=== PATIENT | female | born 1965 | race Caucasian/White ===

== ENCOUNTER 2017-05-30 20:25 | Emergency (ER) | payer OTHER ==
[2017-05-30 20:33] VITALS: RESP 16; TEMP 98.6; O2SAT 95
[2017-05-30] MEDS ORDERED: ONDANSETRON 4 MG/2 ML VIAL ONE (20:45)
[2017-05-30] MEDS ORDERED: ONDANSETRON 4 MG/2 ML VIAL IVP ONE (20:49)
[2017-05-30] MEDS ORDERED: NS 1,000 ML IV ONE (20:49)
[2017-05-30] MEDS ORDERED: FAMOTIDINE 20 MG TAB PO ONE (20:50)
[2017-05-30] MEDS ORDERED: MAG HYDROX/AL HYDROX/SIMETH 30 ML UDCUP PO ONE (20:50)
[2017-05-30] MEDS ORDERED: HYOSCYAMINE SULFATE 0.125 MG TAB PO ONE (20:50)
[2017-05-30] MEDS ORDERED: LIDOCAINE 2% VISCOUS 15 ML UDCUP PO ONE (20:50)
[2017-05-30] MEDS ORDERED: FAMOTIDINE 20 MG/2 ML SDV ONE (20:59)
--- NOTE | 2017-05-30 21:00 | CPEKG ---
Heart Rate: 79 RR Interval: 759 P-R Interval: 176 QRSD Interval: 84 QT Interval: 388 QTC Interval: 445 P [place]: 55 QRS [place]: 48 T Wave [place]: 39 EKG Severity - NORMAL ECG - EKG Impression: SINUS RHYTHM Electronically Signed By: Luciano Sanchez 30-May-2017 21:09:23
--- NOTE | 2017-05-30 21:00 | EDPHY ---
H & P Stated Complaint: Epigastric pain > 24 hours, nausea, and back pain, RUQ pain. Time Seen by Provider: 05/30/17 20:43 HPI/ROS: CHIEF COMPLAINT: Epigastric pain HISTORY OF PRESENT ILLNESS: The patient is a 51-year-old female who comes to the emergency department complaining of epigastric pain that is consistent with her previous episodes of peptic ulcer disease. She states however that today is different because it is radiating to her back. This is never happened before. She does not have any history of abdominal surgeries. No cardiac history. She denies shortness of breath. She denies chest pain. No lightheadedness. She has been slightly nauseous but has not vomited. REVIEW OF SYSTEMS: Constitutional: denies: chills, fever, recent illness, recent injury EENTM: denies: blurred vision, double vision, nose congestion Respiratory: denies: cough, shortness of breath Cardiac: denies: chest pain, irregular heart rate, lightheadedness, palpitations Gastrointestinal/Abdominal: See HPI Genitourinary: denies: dysuria, frequency, hematuria, pain Musculoskeletal: denies: joint pain, muscle pain Skin: denies: lesions, rash, jaundice, bruising Neurological: denies: headache, numbness, paresthesia, tingling, dizziness, weakness Hematologic/Lymphatic: denies: blood clots, easy bleeding, easy bruising Immunologic/allergic: denies: HIV/AIDS, transplant EXAM: GENERAL: Well-appearing, well-nourished and in no acute distress. HEAD: Atraumatic, normocephalic. EYES: Pupils equal round and reactive to light, extraocular movements intact, sclera anicteric, conjunctiva are normal. ENT: TMs normal, nares patent, oropharynx clear without exudates. Moist mucous membranes. NECK: Normal range of motion, supple without lymphadenopathy or JVD. LUNGS: Breath sounds clear to auscultation bilaterally and equal. No wheezes rales or rhonchi. HEART: Regular rate and rhythm without murmurs, rubs or gallops. ABDOMEN: Soft, nontender, normoactive bowel sounds. No guarding, no rebound. No masses appreciated. BACK: No CVA tenderness, no spinal tenderness, step-offs or deformities EXTREMITIES: Normal range of motion, no pitting or edema. No clubbing or cyanosis. NEUROLOGICAL: Cranial nerves II through XII grossly intact. Normal speech, normal gait. 5/5 strength, normal movement in all extremities, normal sensation PSYCH: Normal mood, normal affect. SKIN: Warm, dry, normal turgor, no visible rashes or lesions. Source: Patient Exam Limitations: No limitations - Personal History LMP (Females 10-55): Hysterectomy Current Tetanus/Diphtheria Vaccine: Unsure Current Tetanus Diphtheria and Acellular Pertussis (TDAP): Unsure - Medical/Surgical History Hx Asthma: No Hx Chronic Respiratory Disease: No Hx Diabetes: No Hx Cardiac Disease: No Hx Renal Disease: No Hx Cirrhosis: No Hx Alcoholism: No Hx HIV/AIDS: No Hx Splenectomy or Spleen Trauma: No Other PMH: Hysterectomy, fibroadenoma L Breast, Bilateral bunion surgery, acid reflux, anxiety. - Family History Significant Family History: No pertinent family hx - Social History Smoking Status: Never smoked Alcohol Use: Sober Drug Use: None Constitutional: Initial Vital Signs Temperature (C) 37.0 C 05/30/17 20:29 Heart Rate 100 05/30/17 20:29 Respiratory Rate 16 05/30/17 20:29 Blood Pressure 143/99 H 05/30/17 20:29 O2 Sat (%) 95 05/30/17 20:29 O2 Delivery Mode Room Air Allergies/Adverse Reactions: codeine [Codeine] Allergy (Intermediate, Verified 05/30/17 20:33) Vomiting acetaminophen [Acetaminophen] Allergy (Mild, Verified 05/30/17 20:33) Abdominal Cramping Home Medications: Medication Instructions Recorded ALPRAZolam [Xanax (RX)] 0.5 mg PO DAILY PRN 12/09/11 Clarithromycin [Biaxin (*)] 500 mg PO BID #30 tab 05/30/17 Famotidine [Pepcid 20 MG (OTC)] 20 mg PO BID #30 tab 05/30/17 Metronidazole 500 mg PO BID #30 tablet 05/30/17 Medical Decision Making - Diagnostics EKG Interpretation: An EKG obtained and was read and documented in trace view. Please see trace view for full reading and report. Sinus rhythm, no acute ischemic changes Imaging Results: Imaging Impressions Chest X-Ray 05/30/17 20:50 Impression: Negative for acute abnormality. ED Course/Re-evaluation: 10:10 p.m. the patient feels somewhat better after GI cocktail. The pain in her back is better but she still has epigastric pain. Lab work is otherwise reassuring. I attempted to ultrasound her gallbladder at the bedside was was unable to visualize it. It visualize a slight lucency in her inferior aorta. It is proximal to the air she is having pain. We decided to proceed with CT scan of her aorta and abdomen. 11:06 p.m. the patient feeling much better. We discussed the results of her CT scan she is very much reassured. Her abdominal exam is currently benign. I will place her on triple therapy for peptic ulcer disease number follow up with GI. She is happy with this plan and declines further workup or testing at this time. Differential Diagnosis: Partial list of the Differential diagnosis considered include but were not limited to; peptic ulcer disease, biliary disease, P E, dissection and although unlikely based on the history and physical exam, I also considered pneumonia, pneumothorax, pancreatitis, urinary tract infection. I discussed these differential diagnoses and the plan with the patient as well as the usual and expected course. The patient understands that the diagnosis is provisional and that in medicine we are not always correct and that further workup is often warranted. Usual and customary warnings were given. All of the patient's questions were answered. The patient was instructed to return to the emergency department should the symptoms at all worsen or return, otherwise to followup with the physician as we discussed. - Data Points Laboratory Results: Laboratory Results 05/30/17 20:50 05/30/17 20:50 05/30/17 05/30/17 05/30/17 20:50 20:50 20:50 WBC 8.52 10^3/uL 10^3/uL (3.80-9.50) RBC 4.63 10^6/uL 10^6/uL (4.18-5.33) Hgb 14.7 g/dL g/dL (12.6-16.3) Hct 41.6 % % (38.0-47.0) MCV 89.8 fL fL (81.5-99.8) MCH 31.7 pg pg (27.9-34.1) MCHC 35.3 g/dL g/dL (32.4-36.7) RDW 12.0 % % (11.5-15.2) Plt Count 310 10^3/uL 10^3/uL (150-400) MPV 10.1 fL fL (8.7-11.7) Neut % (Auto) 78.3 % H % (39.3-74.2) Lymph % (Auto) 14.8 % L % (15.0-45.0) [place] % (Auto) 5.6 % % (4.5-13.0) Eos % (Auto) 0.4 % L % (0.6-7.6) Baso % (Auto) 0.7 % % (0.3-1.7) Nucleat RBC Rel Count 0.0 % % (0.0-0.2) Absolute Neuts (auto) 6.67 10^3/uL H 10^3/uL (1.70-6.50) Absolute Lymphs (auto) 1.26 10^3/uL 10^3/uL (1.00-3.00) Absolute Monos (auto) 0.48 10^3/uL 10^3/uL (0.30-0.80) Absolute Eos (auto) 0.03 10^3/uL 10^3/uL (0.03-0.40) Absolute Basos (auto) 0.06 10^3/uL 10^3/uL (0.02-0.10) Absolute Nucleated RBC 0.00 10^3/uL 10^3/uL (0-0.01) Immature Gran % 0.2 % % (0.0-1.1) Immature Gran # 0.02 10^3/uL 10^3/uL (0.00-0.10) D-Dimer 0.29 ug/mLFEU ug/mLFEU (0.00-0.50) Sodium 137 mEq/L mEq/L (134-144) Potassium 3.8 mEq/L mEq/L (3.5-5.2) Chloride 99 mEq/L mEq/L (97-110) Carbon Dioxide 21 mEq/l L mEq/l (22-31) Anion Gap 17 mEq/L H mEq/L (8-16) BUN 10 mg/dL mg/dL (7-23) Creatinine 0.7 mg/dL mg/dL (0.6-1.0) Estimated GFR > 60 Glucose 119 mg/dL H mg/dL (70-100) Calcium 10.3 mg/dL mg/dL (8.5-10.4) Total Bilirubin 0.8 mg/dL mg/dL (0.1-1.4) Conjugated Bilirubin 0.2 mg/dL mg/dL (0.0-0.5) Unconjugated Bilirubin 0.6 mg/dL mg/dL (0.0-1.1) AST 20 IU/L IU/L (14-46) ALT 23 IU/L IU/L (9-52) Alkaline Phosphatase 79 IU/L IU/L (38-126) Troponin I < 0.012 ng/mL ng/mL (0.000-0.034) Total Protein 8.1 g/dL g/dL (6.3-8.2) Albumin 5.0 g/dL g/dL (3.5-5.0) Lipase 263 IU/L IU/L (23-300) Medications Given: Discontinued Medications Al Hydroxide/Mg Hydroxide (Maalox Susp) 30 ml PO ONCE ONE Stop: 05/30/17 20:51 Last Admin: 05/30/17 21:04 Dose: 30 ml Famotidine (Pepcid) 20 mg PO EDNOW ONE Stop: 05/30/17 20:51 Last Admin: 05/30/17 21:09 Dose: Not Given Famotidine (Pepcid) 20 mg IVP EDNOW ONE Stop: 05/30/17 21:09 Last Admin: 05/30/17 21:08 Dose: 20 mg Hyoscyamine Sulfate (Levsin, Hyomax-Sl) 0.25 mg PO ONCE ONE Stop: 05/30/17 20:51 Last Admin: 05/30/17 21:04 Dose: 0.25 mg Sodium Chloride (Ns) 1,000 mls @ 0 mls/hr IV EDNOW ONE; Wide Open PRN Reason: Protocol Stop: 05/30/17 20:50 Last Admin: 05/30/17 21:06 Dose: 1,000 mls Lidocaine (Lidocaine 2% Viscous) 15 ml PO ONCE ONE Stop: 05/30/17 20:51 Last Admin: 05/30/17 21:04 Dose: 15 ml Ondansetron HCl (Zofran) 4 mg IVP EDNOW ONE Stop: 05/30/17 20:50 Last Admin: 09/23/17 22:35 Dose: Not Given Departure - Departure Disposition: Home, Routine, Self-Care Clinical Impression: Epigastric abdominal pain Condition: Fair Instructions: Epigastric Pain (ED) Referrals: DR DAMIAN [Other] - As per Instructions Prescriptions: Clarithromycin [Biaxin (*)] 500 mg PO BID #30 tab Famotidine [Pepcid 20 MG (OTC)] 20 mg PO BID #30 tab Metronidazole 500 mg PO BID #30 tablet
[2017-05-30] MEDS ORDERED: FAMOTIDINE 20 MG/2 ML SDV IVP ONE (21:08)
[2017-05-30 21:12] LABS: % IMMATURE GRANULYOCYTES 0.2 % (0.0-1.1); ABSOLUTE IMMATURE GRANULOCYTES 0.02 10^3/uL (0.00-0.10); ADD DIFF? NO; ADD MORPH? NO; ADD SCAN? NO; ATYPICAL LYMPHOCYTE FLAG 0 (0-99); FRAGMENT RBC FLAG 0 (0-99); HEMATOCRIT 41.6 % (38.0-47.0); HEMOGLOBIN 14.7 g/dL (12.6-16.3); LEFT SHIFT FLG 0 (0-99); LIPEMIA HEMOLYSIS FLAG 90 (0-99); MEAN CELL HEMOGLOBIN 31.7 pg (27.9-34.1); MEAN CELL HEMOGLOBIN CONCENTR. 35.3 g/dL (32.4-36.7); MEAN CELL VOLUME 89.8 fL (81.5-99.8); MEAN PLATELET VOLUME 10.1 fL (8.7-11.7); PLATELET CLUMPS FLAG 0 (0-99); PLATELET COUNT 310 10^3/uL (150-400); RED BLOOD CELL COUNT 4.63 10^6/uL (4.18-5.33)
[2017-05-30 21:27] LABS: ALANINE AMINOTRANSFERASE 23 IU/L (9-52); ALKALINE PHOSPHATASE 79 IU/L (38-126); ANION GAP 17 mEq/L (8-16); ASPARTATE AMINOTRANSFERASE 20 IU/L (14-46); BILIRUBIN,TOTAL 0.8 mg/dL (0.1-1.4); BILIRUBIN-CONJUGATED 0.2 mg/dL (0.0-0.5); BILIRUBIN-UNCONJUGATED 0.6 mg/dL (0.0-1.1); CALCIUM 10.3 mg/dL (8.5-10.4); CARBON DIOXIDE 21 mEq/l (22-31); CHLORIDE 99 mEq/L (97-110); CREATININE 0.7 mg/dL (0.6-1.0); GLOMERULAR FILTRATION RATE > 60; GLUCOSE 119 mg/dL (70-100); POTASSIUM 3.8 mEq/L (3.5-5.2); SODIUM 137 mEq/L (134-144); TOTAL PROTEIN 8.1 g/dL (6.3-8.2)
[2017-05-30 21:59] LABS: TROPONIN I < 0.012 ng/mL (0.000-0.034)
[2017-05-30] MEDS ORDERED: IOPAMIDOL (ISOVUE 370) 100 ML BTL IV ONE (22:19)
[2017-05-30 23:35] VITALS: BP 122/80; PULSE 77
== END 2017-05-30 23:35 | disposition home or self-care (01) ==
DX: R10.13 Epigastric pain (principal); E86.9 Volume depletion, unspecified; Z90.710 Acquired absence of both cervix and uterus
CPT/HCPCS: 96374; J2405; Q9967

== ENCOUNTER 2018-11-03 09:43 | Emergency (ER) | payer BC, OTHER ==
[2018-11-03 12:04] LABS: PLATELET COUNT 304 10^3/uL (150-400)
--- NOTE | 2018-11-03 12:39 | EDPHY ---
General Time Seen by Provider: 11/03/18 11:15 Narrative: CLINICAL IMPRESSION: Back pain ASSESSMENT/PLAN: 53-year-old female with past medical history of left-sided breast cancer status post lumpectomy, currently on radiation therapy, presents to the emergency department with atraumatic thoracic back pain. No associated shortness of breath, chest pain, lower extremity swelling. She mowed some mild nausea and indigestion. Vital signs stable. No tachycardia or hypoxia. EKG shows normal sinus rhythm, no acute ST or T-wave changes, reviewed with Dr. Cox. Labs reassuring. Negative D-dimer, negative troponin, no electrolyte imbalance, renal insufficiency, leukocytosis. Chest x-ray read by Radiology with no acute cardiopulmonary disease or evidence of lytic metastatic lesions. Patient was very reassured by this workup. She will plan to follow up as an outpatient with her medical and radiology oncologist's. Warning signs return to ED sooner outlined and discharge. DIFFERENTIAL DX: Differential diagnosis includes but not limited to myocardial ischemia, pulmonary embolus, chest wall pain, pleural inflammation, musculoskeletal chest wall pain, aortic aneurysm, and pulmonary infectious causes. ED PROCEDURES: See lab and/or imaging results below ED COURSE: Plan for this patient, chest x-ray, labs, D-dimer, troponin, EKG 12:50 p.m.: Diagnostic workup includes normal EKG, negative D-dimer, negative troponin, reassuring labs, normal chest x-ray. CHIEF COMPLAINT: Back pain HPI: Is a very pleasant 53-year-old female with a past medical history significant for left-sided breast cancer status post lumpectomy who is currently undergoing radiation treatment. She denies mastectomy or chemo treatment. She did not have BRACA or hormone testing. No reported PET scan. Patient reports yesterday and today she noted some atraumatic vague mid scapular back pain. Yesterday this seemed worse with deep inspiration and had some mild chest discomfort as well. Today she denies chest pain. She states "want to think that my arm is feeling funny to". No reported dizziness, syncopal episode or lightheadedness. No asymmetric leg swelling. No personal or family history of DVT or PE. No long air or car travel. She reports some indigestion and mild nausea. She has had echocardiograms in the past due to a history of mitral valve prolapse and regurg and states this has been stable. No history of coronary artery disease, [place]. No family history of cardiac disease. Patient is a nonsmoker and does not drink alcohol. No reported history of diabetes, hypertension or high cholesterol. PAST MEDICAL HISTORY: Breast cancer See nurse/triage notes for additional history if applicable Pertinent Past Surgical History: Lumpectomy on the left breast Family History: No family history of cardiac disease or [place] Social History: Nonsmoker, nondrinker, here with her REVIEW OF SYSTEMS: All other systems negative Constitutional: No fever, no chills, appetite change. Eyes: No discharge, vision change ENT: No sore throat, congestion, ear pain. Cardiovascular: Resolved chest pain, no palpitations. Respiratory: No cough, no shortness of breath. Gastrointestinal: No abdominal pain, positive for mild nausea, no vomiting, diarrhea. Genitourinary: No hematuria, dysuria, flank pain, pelvic pain Musculoskeletal: Positive for atraumatic thoracic back pain, joint swelling, joint pain, myalgias. Skin: No rashes, color change. Neurological: No headache, dizziness, weakness. PHYSICAL EXAM: General Appearance: Alert, oriented, appropriate, cooperative, NAD, well hydrated, non-toxic appearing, VSS, no hypoxia, no tachycardia. HEENT: Oropharynx clear is no erythema or exudates, no tonsillar hypertrophy or asymmetry. Dentition without abnormality.] Neck: Supple, nontender, no lymphadenopathy, no midline pain, FROM, no meningismus. Respiratory: There are no retractions, lungs are clear to auscultation. No reproducible chest wall tenderness to palpation Cardiac: Regular rate and rhythm, no murmurs or gallops. Gastrointestinal: Abdomen is soft, nontender, bowel sounds normal, no masses/ hernia, no rigidity, guarding or focal peritoneal findings. Neurological: Alert and oriented x 3, CN 2-12 grossly intact, normal gait no ataxia, normal sensation and strength Skin: Warm, dry, no rashes, no nodules on palpation. Musculoskeletal: Extremities are symmetrical, full range of motion, no tenderness, deformity, swelling, or erythema. No reproducible tenderness to the midline thoracic vertebra or paraspinal muscles of this region. No asymmetric calf swelling, pain or erythema Psychiatric: Patient is oriented X 3, there is no agitation. MEDICAL DECISION MAKING: Patient was seen independently. Secondary supervising physician at time of evaluation was Dr. Cox . Diagnosis: Back pain, nausea . New, requires workup Summary: See Assessment and Plan for summary of ED visit Clinical lab tests: ordered / reviewed. Independent visualization of images, tracing, or specimens: Yes. Decision to obtain medical records or history from someone other than the patient: No Review / Summarize previous medical records: None available Discussed patient with another provider: Dr. Cox Patient Progress: Improved discharge. - Diagnostics Imaging Results: Imaging Impressions Chest X-Ray 11/03/18 11:43 Impression: No acute conventional radiographic abnormality. - History Smoking Status: Never smoked - Objective Vital Signs: Initial Vital Signs Temperature (C) 36.7 C 11/03/18 10:06 Heart Rate 98 11/03/18 10:06 Respiratory Rate 18 11/03/18 10:06 Blood Pressure 123/84 H 11/03/18 10:06 O2 Sat (%) 100 11/03/18 10:06 O2 Delivery Mode Room Air Allergies/Adverse Reactions: codeine [Codeine] Allergy (Intermediate, Verified 11/03/18 10:06) Vomiting acetaminophen [Acetaminophen] Allergy (Mild, Verified 11/03/18 10:06) Abdominal Cramping Home Medications: Medication Instructions Recorded ALPRAZolam [Xanax (RX)] 0.5 mg PO DAILY PRN 12/09/11 Clarithromycin [Biaxin (*)] 500 mg PO BID #30 tab 05/30/17 Famotidine [Pepcid 20 MG (OTC)] 20 mg PO BID #30 tab 05/30/17 Metronidazole 500 mg PO BID #30 tablet 05/30/17 Laboratory Results: Laboratory Results 11/03/18 11:46 11/03/18 11:46 11/03/18 11/03/18 11/03/18 12:02 11:46 11:46 WBC RBC Hgb Hct MCV MCH MCHC RDW Plt Count MPV Neut % (Auto) Lymph % (Auto) [place] % (Auto) Eos % (Auto) Baso % (Auto) Nucleat RBC Rel Count Absolute Neuts (auto) Absolute Lymphs (auto) Absolute Monos (auto) Absolute Eos (auto) Absolute Basos (auto) Absolute Nucleated RBC Immature Gran % Immature Gran # D-Dimer < 0.27 ug/mLFEU ug/mLFEU (0.00-0.50) Sodium 138 mEq/L mEq/L (135-145) Potassium 4.5 mEq/L mEq/L (3.5-5.2) Chloride 104 mEq/L mEq/L (97-110) Carbon Dioxide 25 mEq/l mEq/l (22-31) Anion Gap 9 mEq/L mEq/L (6-14) BUN 16 mg/dL mg/dL (7-23) Creatinine 0.6 mg/dL mg/dL (0.6-1.0) Estimated GFR > 60 Glucose 97 mg/dL mg/dL (70-100) Calcium 9.7 mg/dL mg/dL (8.5-10.4) POC Troponin I 0.00 ng/mL ng/mL (0.00-0.08) 11/03/18 11:46 WBC 5.47 10^3/uL 10^3/uL (3.80-9.50) RBC 4.77 10^6/uL 10^6/uL (4.18-5.33) Hgb 15.2 g/dL g/dL (12.6-16.3) Hct 42.9 % % (38.0-47.0) MCV 89.9 fL fL (81.5-99.8) MCH 31.9 pg pg (27.9-34.1) MCHC 35.4 g/dL g/dL (32.4-36.7) RDW 12.0 % % (11.5-15.2) Plt Count 304 10^3/uL 10^3/uL (150-400) MPV 10.0 fL fL (8.7-11.7) Neut % (Auto) 75.3 % H % (39.3-74.2) Lymph % (Auto) 15.7 % % (15.0-45.0) [place] % (Auto) 6.6 % % (4.5-13.0) Eos % (Auto) 1.3 % % (0.6-7.6) Baso % (Auto) 0.9 % % (0.3-1.7) Nucleat RBC Rel Count 0.0 % % (0.0-0.2) Absolute Neuts (auto) 4.12 10^3/uL 10^3/uL (1.70-6.50) Absolute Lymphs (auto) 0.86 10^3/uL L 10^3/uL (1.00-3.00) Absolute Monos (auto) 0.36 10^3/uL 10^3/uL (0.30-0.80) Absolute Eos (auto) 0.07 10^3/uL 10^3/uL (0.03-0.40) Absolute Basos (auto) 0.05 10^3/uL 10^3/uL (0.02-0.10) Absolute Nucleated RBC 0.00 10^3/uL 10^3/uL (0-0.01) Immature Gran % 0.2 % % (0.0-1.1) Immature Gran # 0.01 10^3/uL 10^3/uL (0.00-0.10) D-Dimer Sodium Potassium Chloride Carbon Dioxide Anion Gap BUN Creatinine Estimated GFR Glucose Calcium POC Troponin I Point of Care Test Results: Chemistry 11/03/18 12:02 POC Troponin I 0.00 ng/mL ng/mL (0.00-0.08) Departure - Departure Disposition: Home, Routine, Self-Care Clinical Impression: Back pain Qualifiers: Back pain location: thoracic back pain Chronicity: acute Back pain laterality: bilateral Qualified Code(s): M54.6 - Pain in thoracic spine Condition: Fair Instructions: Back Pain (ED) Additional Instructions: DISCHARGE INSTRUCTIONS FROM YOUR DOCTOR Thank you for visiting our emergency department today. You were treated by a physician occupational therapist's assistant today and your case was reviewed with our ED Attending physician. Please keep in mind that discharge from the emergency department does not mean that there is nothing wrong - it simply means that we have not identified an emergency condition that requires further evaluation or treatment in the hospital. You should always plan to follow up with primary care for re- evaluation of your condition in the next 2-3 days. If you have been referred to a specialist, please call as soon as possible (today or tomorrow) to schedule your follow up appointment at the appropriate time. DIAGNOSTIC WORKUP IN THE EMERGENCY DEPARTMENT TODAY INCLUDED EKG, CARDIAC ENZYMES, D-DIMER, LABORATORY EVALUATION AND CHEST X-RAY. RADIOLOGY HAS READ YOUR CHEST X-RAY, THERE IS NO EVIDENCE OF ACUTE CARDIOPULMONARY DISEASE OR METASTATIC DISEASE. NO OBVIOUS COMPRESSION FRACTURE OR BONY ABNORMALITY. LAB WORK IS ALSO REASSURING, CARDIAC ENZYMES ARE NEGATIVE AND D-DIMER IS NEGATIVE. VITAL SIGNS ARE STABLE. EKG IS WITHOUT ABNORMALITY. PLEASE MONITOR SYMPTOMS CLOSELY AT HOME. FOLLOW UP WITH HER RADIATION ONCOLOGIST AND MEDICAL ONCOLOGIST. WE ALSO PROVIDED THE NAME OF CARDIOLOGY FOR OUTPATIENT REFERRAL. RETURN TO THE EMERGENCY DEPARTMENT FOR WORSENING OR SEVERE PAIN, VOMITING, FEVER , SHORTNESS OF BREATH, PERSISTENT CHEST PAIN, FAINTING EPISODES, OR ANY OTHER CONCERN. People present with illnesses and injuries in different ways, and it is always possible that we have missed something. You may always return for re-evaluation if symptoms worsen or if they are not improving or if you develop new/different symptoms. Again, thank you for choosing our emergency department. We hope that you feel better. Referrals: Maliha Gibbs MD [Primary Care Provider] - 1-2 days without fail Henry Munoz MD [Medical Doctor] - 2-3 days, call for appt.
[2018-11-03 13:09] VITALS: BP 121/80
--- NOTE | 2018-11-05 09:09 | CPEKG ---
Test Reason : OPEN Blood Pressure : / mmHG Vent. Rate : 080 BPM Atrial Rate : 079 BPM P-R Int : 159 ms QRS Dur : 081 ms QT Int : 363 ms P-R-T Axes : 051 059 059 degrees QTc Int : 419 ms Sinus rhythm Confirmed by Renetta Cox ([id number]) on 11/05/2018 9:08:40 AM Referred By: PHYSICIAN ED Confirmed By:Renetta Cox
== END 2018-11-03 13:10 | disposition home or self-care (01) ==
DX: M54.6 Pain in thoracic spine (principal); C50.912 Malignant neoplasm of unspecified site of left female breast
CPT/HCPCS: 84484-ER